=== PATIENT | male | born 1960 | race Caucasian/White ===

== ENCOUNTER → 2017-07-04 | Outpatient (CLI) | payer SELFPAY ==
[~2017-07-04] MED LIST: FLEXERIL10 MG PO; IBUPROFEN600 MG PO; LORTAB 5-500 T1 EACH PO; MOTRIN600 MG PO; NAPROSYN500 MG PO
== END | disposition home or self-care (01) ==
LOC: RAD 08:37
DX: K76.0 Fatty (change of) liver, not elsewhere classified (principal); R93.5 Abnormal findings on diagnostic imaging of other abdominal regions, including retroperitoneum; E11.9 Type 2 diabetes mellitus without complications; Z79.4 Long term (current) use of insulin
CPT/HCPCS: 76705